=== PATIENT | male | born 1970 | race Caucasian/White ===

== ENCOUNTER 2025-02-25 12:41 | Outpatient (CLI) | payer BC | END 2025-02-25 12:42 | disposition home or self-care (01) | LOC: CSHWCC 12:41 | PROVIDERS: ATTEND Nurse Practitioner Family | DX: E11.621 Type 2 diabetes mellitus with foot ulcer (principal); L97.421 Non-pressure chronic ulcer of left heel and midfoot limited to breakdown of skin; S98.912D Complete traumatic amputation of left foot, level unspecified, subsequent encounter; E11.40 Type 2 diabetes mellitus with diabetic neuropathy, unspecified; E11.65 Type 2 diabetes mellitus with hyperglycemia | CPT/HCPCS: 11042 ==

== ENCOUNTER 2025-03-05 20:33 | Inpatient (IN) | payer BC, OTHER, SELFPAY ==
[~2025-03-05 20:33] MED LIST: Iopamidol 300 61% 100 ML VIAL FS ONE
[2025-03-05] MEDS ORDERED: Ketorolac Tromethamine 30 MG (1 mL) VIAL ONE (21:18)
[2025-03-05] MEDS ORDERED: Gabapentin 300 MG CAP ONE (21:22)
[2025-03-05 21:36] LABS: #Basophils 0.04 10x3/uL (0.0-0.2); #Eosinophils 0.06 10x3/uL (0.0-0.5); #Monocytes 0.65 10x3/uL (0.0-1.1); #Neutrophils 7.12 10x3/uL (1.5-8.4); %Basophils 0.4 % (0.0-2.0); %Eosinophils 0.6 % (0.0-6.0); %Lymphocytes 16.1 % (18.0-47.0); %Monocytes 6.8 % (0.0-10.0); %Neutrophils 74.8 % (40.0-75.0); Hematocrit 36.1 % (38.8-50.0); Hemoglobin 12.6 g/dL (13.5-17.5); INR-International Normal Ratio 0.9; Mean Corpuscular Hemoglobin 30.5 pg (27.0-33.0); Mean Corpuscular Volume 87.4 fL (81.2-95.1); PTT 26.5 sec (22.0-33.0); Platelet Count 328 10x3/uL (150-450); Prothrombin Time 10.3 sec (9.5-12.1); Red Blood Cell (RBC) Count 4.13 10x6/uL (4.32-5.72); White Blood Cell (WBC) Count 9.52 10x3/uL (3.5-10.5)
[2025-03-05 21:39] LABS: ALT (SGPT) Less than 7 U/L (Less than 45); AST (SGOT) 7 U/L (11-34); Albumin 2.7 g/dL (3.1-4.5); Alkaline Phosphatase 67 U/L (40-110); Anion Gap 16 mmol/L (10-20); BUN (Urea Nitrogen) 20 mg/dL (8.4-25.7); Bilirubin, Total 0.3 mg/dL (0.3-1.2); Calc. Creatinine Clearance 0 mL/min (70-130); Calcium 8.2 mg/dL (7.8-10.44); Carbon Dioxide 19 mmol/L (22-29); Chloride 107 mmol/L (98-107); Globulin 4.7 g/dL (2.4-3.5); Potassium 3.8 mmol/L (3.5-5.1); Sodium 138 mmol/L (136-145)
[2025-03-05 21:41] LABS: Glucose 503 mg/dL (70-105)
[2025-03-05 21:58] LABS: Glucose, Urine (Dipstick) >=1000 mg/dL (Negative); Leukocyte Negative (Negative); Protein, Urine (Dipstick) 500 mg/dl (Neg-Trace); Specific Gravity, Urine 1.015 (1.005-1.030)
[2025-03-05 22:06] LABS: Actual Bicarbonate (HCO3v) 18.3 mEq/L (22-28); Analyzer IN Cardio CS ER; Base Excess -5.5 mEq/L (-2 - +2); Calcium, Ionized (venous) 1.09 mmol/L (1.16-1.32); Chloride (VBG) 105 mmol/L (98-106); Hematocrit-VBG 37 % (42.0-52.0); Hemoglobin (Hb) 12.5 g/dL (13.1-17.2); Potassium (VBG) 3.68 mmol/L (3.70-5.30); Puncture Site Other Site; RapidComm Collect By Lab; Sodium 137 mmol/L (133-146)
[2025-03-05 22:10] LABS: CAUTI Indications for Culture Fever or rigors; RBC/HPF 0-3 HPF (0-3); WBC/HPF 0-3 HPF (0-3)
[2025-03-05 22:12] LABS: Bacteria/HPF 1+ HPF (None Seen); Mucous/LPF Rare LPF (<2+)
[2025-03-05 22:14] LABS: Urine Culture Reflex No No
[2025-03-05] MEDS ORDERED: Ondansetron PF 4 MG/2 ML Vial IVP PRN (23:52)
[2025-03-06] MEDS ORDERED: Glucagon 1 MG/ML KIT IM PRN (00:39)
[2025-03-06] MEDS ORDERED: Dextrose 50% Abboject 50 ML SYRINGE SLOW IVP PRN (00:39)
[2025-03-06] MEDS: Vancomycin 2.25 GM in Sodium Chloride 0.9% 500 ML IVPB SCH (01:06)
[2025-03-06 02:26] VITALS: BMI 29.5
[2025-03-06 03:16] LABS: #Basophils 0.05 10x3/uL (0.0-0.2); #Eosinophils 0.10 10x3/uL (0.0-0.5); #Monocytes 0.76 10x3/uL (0.0-1.1); #Neutrophils 6.06 10x3/uL (1.5-8.4); %Basophils 0.6 % (0.0-2.0); %Eosinophils 1.1 % (0.0-6.0); %Lymphocytes 20.6 % (18.0-47.0); %Monocytes 8.6 % (0.0-10.0); %Neutrophils 68.9 % (40.0-75.0); Hematocrit 33.0 % (38.8-50.0); Hemoglobin 11.3 g/dL (13.5-17.5); Mean Corpuscular Hemoglobin 30.1 pg (27.0-33.0); Mean Corpuscular Volume 88.0 fL (81.2-95.1); Platelet Count 258 10x3/uL (150-450); Red Blood Cell (RBC) Count 3.75 10x6/uL (4.32-5.72); White Blood Cell (WBC) Count 8.80 10x3/uL (3.5-10.5)
[2025-03-06 03:39] LABS: Anion Gap 10 mmol/L (10-20); BUN (Urea Nitrogen) 15 mg/dL (8.4-25.7); Calc. Creatinine Clearance 94 mL/min (70-130); Calcium 7.7 mg/dL (7.8-10.44); Carbon Dioxide 21 mmol/L (22-29); Chloride 111 mmol/L (98-107); Glucose 327 mg/dL (70-105); Potassium 3.4 mmol/L (3.5-5.1); Sodium 139 mmol/L (136-145); Vancomycin, Random 20.6 ug/mL (See Comment)
[2025-03-06] MEDS ORDERED: Acetaminophen 325 MG TAB ONE (08:48)
[2025-03-06] MEDS ORDERED: Losartan 25 MG TAB ONE ×2 (09:45→10:01)
[2025-03-06] MEDS: Losartan 25 MG TAB PO SCH (10:00)
[2025-03-06] MEDS ORDERED: VANCOMYCIN 1.25 GM/250 ML BAG 1.25 GM in Premix 1 BAG IVPB SCH (10:00)
[2025-03-06] MEDS: Lantus 1000 UNITS/10 ML VIAL SC SCH (10:07)
[2025-03-06] MEDS: Gabapentin 300 MG CAP PO SCH ×2 (11:08→15:08)
[2025-03-06] MEDS: Vancomycin 1 GM in Sodium Chloride 0.9% 250 ML 250 ML IVPB SCH ×3 (12:42→21:58)
[2025-03-06 13:44] LABS: Osmolality, Serum 313 mOsm/kg (275-295)
[2025-03-06 19:09] LABS: Magnesium 1.5 mg/dL (1.6-2.6)
[2025-03-07 04:36] LABS: #Basophils 0.04 10x3/uL (0.0-0.2); #Eosinophils 0.15 10x3/uL (0.0-0.5); #Monocytes 0.65 10x3/uL (0.0-1.1); #Neutrophils 3.51 10x3/uL (1.5-8.4); %Basophils 0.7 % (0.0-2.0); %Eosinophils 2.5 % (0.0-6.0); %Lymphocytes 28.1 % (18.0-47.0); %Monocytes 10.7 % (0.0-10.0); %Neutrophils 57.8 % (40.0-75.0); Hematocrit 33.2 % (38.8-50.0); Hemoglobin 11.5 g/dL (13.5-17.5); Mean Corpuscular Hemoglobin 30.1 pg (27.0-33.0); Mean Corpuscular Volume 86.9 fL (81.2-95.1); Platelet Count 245 10x3/uL (150-450); Red Blood Cell (RBC) Count 3.82 10x6/uL (4.32-5.72); White Blood Cell (WBC) Count 6.06 10x3/uL (3.5-10.5)
[2025-03-07 04:50] LABS: Anion Gap 10 mmol/L (10-20); BUN (Urea Nitrogen) 11 mg/dL (8.4-25.7); Calc. Creatinine Clearance 133 mL/min (70-130); Calcium 7.9 mg/dL (7.8-10.44); Carbon Dioxide 24 mmol/L (22-29); Chloride 109 mmol/L (98-107); Glucose 99 mg/dL (70-105); Potassium 3.5 mmol/L (3.5-5.1); Sodium 139 mmol/L (136-145)
[2025-03-07 06:22] LABS: Magnesium 1.5 mg/dL (1.6-2.6)
[2025-03-07] MEDS: Lantus 1000 UNITS/10 ML VIAL SC SCH (08:45)
[2025-03-07] MEDS ORDERED: Magnesium 2 GM/50 ML(in water) 2 GM in Premix 1 BAG IVPB SCH (10:00)
[2025-03-07] MEDS ORDERED: Vancomycin 1.5 GRAM/300 ML BAG 1.5 GM in Premix 1 BAG IVPB SCH (10:00)
[2025-03-07] MEDS: VANCOMYCIN 1.75 GM/350 ML BAG 1.75 GM in Premix 1 BAG IVPB SCH (13:26)
[2025-03-07] MEDS: Magnesium 2 GM/50 ML(in water) 2 GM in Premix 1 BAG IVPB SCH ×2 (13:27→15:18)
[2025-03-07 14:31] LABS: Potassium 3.8 mmol/L (3.5-5.1)
[2025-03-07] MEDS: Acetaminophen 325 MG TAB PO PRN (20:35)
[2025-03-07] MEDS: Vancomycin 1.5 GRAM/300 ML BAG 1.5 GM in Premix 1 BAG IVPB SCH (22:00)
[2025-03-08 04:12] LABS: #Basophils 0.04 10x3/uL (0.0-0.2); #Eosinophils 0.19 10x3/uL (0.0-0.5); #Monocytes 0.68 10x3/uL (0.0-1.1); #Neutrophils 3.98 10x3/uL (1.5-8.4); %Basophils 0.6 % (0.0-2.0); %Eosinophils 2.9 % (0.0-6.0); %Lymphocytes 24.5 % (18.0-47.0); %Monocytes 10.5 % (0.0-10.0); %Neutrophils 61.2 % (40.0-75.0); Hematocrit 34.6 % (38.8-50.0); Hemoglobin 11.6 g/dL (13.5-17.5); Mean Corpuscular Hemoglobin 28.7 pg (27.0-33.0); Mean Corpuscular Volume 85.6 fL (81.2-95.1); Platelet Count 249 10x3/uL (150-450); Red Blood Cell (RBC) Count 4.04 10x6/uL (4.32-5.72); White Blood Cell (WBC) Count 6.50 10x3/uL (3.5-10.5)
[2025-03-08 04:27] LABS: Vancomycin, Random 22.7 ug/mL (See Comment)
[2025-03-08 04:31] LABS: Anion Gap 11 mmol/L (10-20); BUN (Urea Nitrogen) 14 mg/dL (8.4-25.7); Calc. Creatinine Clearance 130 mL/min (70-130); Calcium 7.8 mg/dL (7.8-10.44); Carbon Dioxide 23 mmol/L (22-29); Chloride 106 mmol/L (98-107); Glucose 270 mg/dL (70-105); Magnesium 1.9 mg/dL (1.6-2.6); Potassium 3.7 mmol/L (3.5-5.1); Sodium 136 mmol/L (136-145)
[2025-03-08] MEDS ORDERED: PROPOFOL 20 ML ONE (07:33)
[2025-03-08] MEDS ORDERED: Ondansetron PF 4 MG/2 ML Vial ONE (07:33)
[2025-03-08] MEDS ORDERED: Ketorolac Tromethamine 30 MG (1 mL) VIAL ONE (07:34)
[2025-03-08] MEDS ORDERED: PHENYLEPHRINE-NS 100 MCG/ML 10 ML SYRINGE ONE (08:19)
[2025-03-08] MEDS: Magnesium 2 GM/50 ML(in water) 2 GM in Premix 1 BAG IVPB SCH (11:00)
[2025-03-08] MEDS: HYDROcodone/Acetaminophen 5/325 mg Tablet PO PRN (20:39)
[2025-03-09] MEDS: HYDROcodone/Acetaminophen 5/325 mg Tablet PO PRN (01:43)
[2025-03-09 04:05] LABS: #Basophils 0.04 10x3/uL (0.0-0.2); #Eosinophils 0.10 10x3/uL (0.0-0.5); #Monocytes 0.54 10x3/uL (0.0-1.1); #Neutrophils 6.28 10x3/uL (1.5-8.4); %Basophils 0.5 % (0.0-2.0); %Eosinophils 1.2 % (0.0-6.0); %Lymphocytes 17.6 % (18.0-47.0); %Monocytes 6.4 % (0.0-10.0); %Neutrophils 73.8 % (40.0-75.0); Hematocrit 33.4 % (38.8-50.0); Hemoglobin 11.6 g/dL (13.5-17.5); Mean Corpuscular Hemoglobin 29.7 pg (27.0-33.0); Mean Corpuscular Volume 85.6 fL (81.2-95.1); Platelet Count 308 10x3/uL (150-450); Red Blood Cell (RBC) Count 3.90 10x6/uL (4.32-5.72); White Blood Cell (WBC) Count 8.49 10x3/uL (3.5-10.5)
[2025-03-09 04:21] LABS: Anion Gap 11 mmol/L (10-20); BUN (Urea Nitrogen) 18 mg/dL (8.4-25.7); Calc. Creatinine Clearance 153 mL/min (70-130); Calcium 8.2 mg/dL (7.8-10.44); Carbon Dioxide 21 mmol/L (22-29); Chloride 106 mmol/L (98-107); Glucose 244 mg/dL (70-105); Magnesium 1.8 mg/dL (1.6-2.6); Potassium 3.6 mmol/L (3.5-5.1); Sodium 134 mmol/L (136-145)
[2025-03-09] MEDS: Magnesium 2 GM/50 ML(in water) 2 GM in Premix 1 BAG IVPB SCH (09:54)
[2025-03-09] MEDS: VANCOMYCIN 1.75 GM/350 ML BAG 1.75 GM in Premix 1 BAG IVPB SCH (09:58)
[2025-03-09 12:28] VITALS: BMI 29.5
[2025-03-10 05:36] LABS: #Basophils 0.06 10x3/uL (0.0-0.2); #Eosinophils 0.20 10x3/uL (0.0-0.5); #Monocytes 0.49 10x3/uL (0.0-1.1); #Neutrophils 3.51 10x3/uL (1.5-8.4); %Basophils 0.9 % (0.0-2.0); %Eosinophils 3.0 % (0.0-6.0); %Lymphocytes 35.1 % (18.0-47.0); %Monocytes 7.4 % (0.0-10.0); %Neutrophils 53.3 % (40.0-75.0); Hematocrit 33.8 % (38.8-50.0); Hemoglobin 11.7 g/dL (13.5-17.5); Mean Corpuscular Hemoglobin 29.9 pg (27.0-33.0); Mean Corpuscular Volume 86.4 fL (81.2-95.1); Platelet Count 303 10x3/uL (150-450); Red Blood Cell (RBC) Count 3.91 10x6/uL (4.32-5.72); White Blood Cell (WBC) Count 6.59 10x3/uL (3.5-10.5)
[2025-03-10 05:48] LABS: Vancomycin, Random 25.1 ug/mL (See Comment)
[2025-03-10 05:51] LABS: Anion Gap 10 mmol/L (10-20); BUN (Urea Nitrogen) 17 mg/dL (8.4-25.7); Calc. Creatinine Clearance 145 mL/min (70-130); Calcium 8.1 mg/dL (7.8-10.44); Carbon Dioxide 24 mmol/L (22-29); Chloride 108 mmol/L (98-107); Glucose 184 mg/dL (70-105); Magnesium 1.7 mg/dL (1.6-2.6); Potassium 3.9 mmol/L (3.5-5.1); Sodium 138 mmol/L (136-145)
[2025-03-10] MEDS: Vancomycin 1.5 GRAM/300 ML BAG 1.5 GM in Premix 1 BAG IVPB SCH (11:45)
[2025-03-10] MEDS: Magnesium 2 GM/50 ML(in water) 2 GM in Premix 1 BAG IVPB SCH (13:33)
[2025-03-10] MEDS: Rosuvastatin 20 MG TAB PO SCH (20:23)
[2025-03-11 06:09] LABS: #Basophils 0.04 10x3/uL (0.0-0.2); #Eosinophils 0.19 10x3/uL (0.0-0.5); #Monocytes 0.51 10x3/uL (0.0-1.1); #Neutrophils 3.00 10x3/uL (1.5-8.4); %Basophils 0.7 % (0.0-2.0); %Eosinophils 3.1 % (0.0-6.0); %Lymphocytes 38.0 % (18.0-47.0); %Monocytes 8.4 % (0.0-10.0); %Neutrophils 49.3 % (40.0-75.0); Hematocrit 36.3 % (38.8-50.0); Hemoglobin 12.1 g/dL (13.5-17.5); Mean Corpuscular Hemoglobin 28.5 pg (27.0-33.0); Mean Corpuscular Volume 85.4 fL (81.2-95.1); Platelet Count 310 10x3/uL (150-450); Red Blood Cell (RBC) Count 4.25 10x6/uL (4.32-5.72); White Blood Cell (WBC) Count 6.08 10x3/uL (3.5-10.5)
[2025-03-11 06:25] LABS: Anion Gap 13 mmol/L (10-20); BUN (Urea Nitrogen) 14 mg/dL (8.4-25.7); Calc. Creatinine Clearance 145 mL/min (70-130); Calcium 8.4 mg/dL (7.8-10.44); Carbon Dioxide 23 mmol/L (22-29); Chloride 109 mmol/L (98-107); Glucose 123 mg/dL (70-105); Magnesium 1.8 mg/dL (1.6-2.6); Potassium 3.8 mmol/L (3.5-5.1); Sodium 141 mmol/L (136-145)
[2025-03-11] MEDS: Aspirin 81 mg Enteric Coated Tablet PO SCH (08:54)
[2025-03-11] MEDS: Magnesium 2 GM/50 ML(in water) 2 GM in Premix 1 BAG IVPB SCH (11:22)
[2025-03-11] MEDS: cefTRIAXone\\ROCEPHIN 2 GM in Sodium Chloride 0.9% 100 ML IVPB SCH (23:29)
[2025-03-12 04:40] LABS: Magnesium 1.9 mg/dL (1.6-2.6)
[2025-03-12] MEDS: Magnesium 2 GM/50 ML(in water) 2 GM in Premix 1 BAG IVPB SCH (09:10)
[2025-03-12] MEDS: Pantoprazole 40 MG DR.TAB PO SCH (11:43)
[2025-03-12 16:59] VITALS: BP 159/92; TEMP 98.4
== END 2025-03-12 18:38 | disposition home or self-care (01) | DRG 854 ==
LOC: CSHERS 20:33 → CSHERHOLD 23:02 → CSHTELE 03-06 10:45
PROVIDERS: ADMIT Internal Medicine; ATTEND Hospitalist
PROC: 3E03329 Introduction of Other Anti-infective into Peripheral Vein, Percutaneous Approach (ICD-10-PCS; 2025-03-05)
PROC: 0QBM0ZZ Excision of Left Tarsal, Open Approach (ICD-10-PCS; 2025-03-08)
PROC: 02HV33Z Insertion of Infusion Device into Superior Vena Cava, Percutaneous Approach (ICD-10-PCS; principal; 2025-03-09)
PROC: B5181ZA Fluoroscopy of Superior Vena Cava using Low Osmolar Contrast, Guidance (ICD-10-PCS; 2025-03-09)
DX: A41.9 Sepsis, unspecified organism (principal); E87.20 Acidosis, unspecified; M86.9 Osteomyelitis, unspecified; L97.529 Non-pressure chronic ulcer of other part of left foot with unspecified severity; K21.9 Gastro-esophageal reflux disease without esophagitis; I10 Essential (primary) hypertension; Z98.890 Other specified postprocedural states; F17.220 Nicotine dependence, chewing tobacco, uncomplicated; Z79.899 Other long term (current) drug therapy; Z79.4 Long term (current) use of insulin; E87.6 Hypokalemia; E83.42 Hypomagnesemia; Z79.82 Long term (current) use of aspirin; E11.621 Type 2 diabetes mellitus with foot ulcer; E11.69 Type 2 diabetes mellitus with other specified complication; E11.65 Type 2 diabetes mellitus with hyperglycemia; E11.40 Type 2 diabetes mellitus with diabetic neuropathy, unspecified
CPT/HCPCS: 36415; 36416; 36572; 80048; 80053; 80202; 81001; 82010; 82805; 83036; 83605; 83735; 83930; 84100; 85025; 85610; 85730; 86140; 87040; 87070; 87076; 87081; 87086; 87102; 87205; 93926; 94760; 96365; 96366; 96367; 96375; 96376; 97139; C1751; J0692; J0696; J1100; J1815; J1885; J2270; J2405; J2543; J2704; J3010; J3373; J3375; J3475; J7030; J7050; J7120; Q9967

== ENCOUNTER 2025-03-18 10:51 | Outpatient (CLI) | payer OTHER | END 2025-03-18 10:52 | disposition home or self-care (01) | LOC: CSHWCC 10:51 | PROVIDERS: ATTEND Nurse Practitioner Family | DX: S98.912D Complete traumatic amputation of left foot, level unspecified, subsequent encounter (principal); E11.621 Type 2 diabetes mellitus with foot ulcer; L97.421 Non-pressure chronic ulcer of left heel and midfoot limited to breakdown of skin; E11.65 Type 2 diabetes mellitus with hyperglycemia | CPT/HCPCS: 11042; 99213; G0463 ==

== ENCOUNTER 2025-03-26 13:56 | Outpatient (CLI) | payer OTHER | END 2025-03-26 13:57 | disposition home or self-care (01) | LOC: CSHRAD 13:56 | PROVIDERS: ATTEND Nurse Practitioner Family | DX: L97.421 Non-pressure chronic ulcer of left heel and midfoot limited to breakdown of skin (principal) | CPT/HCPCS: 71046 ==

== ENCOUNTER 2025-04-01 11:12 | Outpatient (CLI) | payer OTHER | END 2025-04-01 11:13 | disposition home or self-care (01) | LOC: CSHWCC 11:12 | PROVIDERS: ATTEND Nurse Practitioner Family | DX: L89.503 Pressure ulcer of unspecified ankle, stage 3 (principal); S98.912D Complete traumatic amputation of left foot, level unspecified, subsequent encounter; E11.621 Type 2 diabetes mellitus with foot ulcer; L97.421 Non-pressure chronic ulcer of left heel and midfoot limited to breakdown of skin; E11.65 Type 2 diabetes mellitus with hyperglycemia; M86.172 Other acute osteomyelitis, left ankle and foot | CPT/HCPCS: 11042 ==

== ENCOUNTER 2025-04-14 21:25 | Inpatient (IN) | payer OTHER ==
[2025-04-14] MEDS ORDERED: Calcium Carbonate 500 MG ChewTAB PO PRN (22:47)
[2025-04-14] MEDS ORDERED: Guaifenesin DM 100-10/5 ML UDCUP PO PRN (22:47)
[2025-04-14] MEDS ORDERED: Dextrose 50% Abboject 50 ML SYRINGE SLOW IVP PRN (22:47)
[2025-04-14] MEDS ORDERED: Senokot S 8.6-50 MG TAB PO PRN (22:47)
[2025-04-14] MEDS ORDERED: Glucagon 1 MG/ML KIT IM PRN (22:47)
[2025-04-14] MEDS ORDERED: Melatonin 3 MG TAB PO PRN (22:47)
[2025-04-14] MEDS ORDERED: Chlorhexidine Gluconate 15 ML UDCUP SSP PRN (22:59)
[2025-04-14 23:15] VITALS: BMI 28.0
[2025-04-14] MEDS: Magnesium 2 GM/50 ML(in water) 2 GM in Premix 1 BAG IVPB SCH (23:32)
[2025-04-14 23:37] LABS: Anion Gap 15 mmol/L (10-20); BUN (Urea Nitrogen) 17 mg/dL (8.4-25.7); Calc. Creatinine Clearance 109 mL/min (70-130); Calcium 8.0 mg/dL (7.8-10.44); Carbon Dioxide 20 mmol/L (22-29); Chloride 107 mmol/L (98-107); Glucose 362 mg/dL (70-105); Potassium 3.6 mmol/L (3.5-5.1); Sodium 138 mmol/L (136-145)
[2025-04-14] MEDS: Acetaminophen/Codeine 30-300mg Tablet PO PRN (23:53)
[2025-04-14] MEDS: Potassium Phosphate 30 MMOL in Sodium Chloride 0.9% 250 ML 250 ML IVPB SCH (23:56)
[2025-04-15 01:39] LABS: Influenza A by NAA Not Detected (NotDetected); Influenza B by NAA Not Detected (NotDetected); RSV by NAA Not Detected (NotDetected); SARS-CoV-2 NAA Rapid Test Not Detected (NotDetected)
[2025-04-15] MEDS: Acetaminophen 325 MG TAB PO PRN (02:14)
[2025-04-15 04:36] LABS: Vancomycin, Random 2.2 ug/mL (See Comment)
[2025-04-15 04:37] LABS: Anion Gap 10 mmol/L (10-20); BUN (Urea Nitrogen) 18 mg/dL (8.4-25.7); Calc. Creatinine Clearance 108 mL/min (70-130); Calcium 7.8 mg/dL (7.8-10.44); Carbon Dioxide 22 mmol/L (22-29); Chloride 108 mmol/L (98-107); Glucose 203 mg/dL (70-105); Magnesium 1.7 mg/dL (1.6-2.6); Potassium 3.4 mmol/L (3.5-5.1); Sodium 137 mmol/L (136-145)
[2025-04-15 05:31] LABS: #Basophils 0.03 10x3/uL (0.0-0.2); #Eosinophils Less than 0.03 10x3/uL (0.0-0.5); #Monocytes 0.65 10x3/uL (0.0-1.1); #Neutrophils 9.45 10x3/uL (1.5-8.4); %Basophils 0.3 % (0.0-2.0); %Eosinophils 0.1 % (0.0-6.0); %Lymphocytes 9.6 % (18.0-47.0); %Monocytes 5.8 % (0.0-10.0); %Neutrophils 83.8 % (40.0-75.0); Hematocrit 32.7 % (38.8-50.0); Hemoglobin 11.3 g/dL (13.5-17.5); Mean Corpuscular Hemoglobin 28.8 pg (27.0-33.0); Mean Corpuscular Volume 83.2 fL (81.2-95.1); Platelet Count 247 10x3/uL (150-450); Red Blood Cell (RBC) Count 3.93 10x6/uL (4.32-5.72); White Blood Cell (WBC) Count 11.26 10x3/uL (3.5-10.5)
[2025-04-15] MEDS ORDERED: Losartan 50 MG TAB PO SCH (09:00)
[2025-04-15] MEDS: Gabapentin 300 MG CAP PO SCH (09:16)
[2025-04-15] MEDS: Pantoprazole 40 MG DR.TAB PO SCH (09:17)
[2025-04-15] MEDS: Aspirin 81 mg Enteric Coated Tablet PO SCH (09:18)
[2025-04-15] MEDS: glipiZIDE XL 5 mg ER.TAB PO SCH (09:18)
[2025-04-15] MEDS: PHOS-NAK 1 PKT PACK PO SCH (09:19)
[2025-04-15] MEDS: Magnesium Oxide 400 MG TAB PO SCH (09:19)
[2025-04-15] MEDS: Enoxaparin 40 MG (0.4 mL) SYRINGE SC SCH (09:20)
[2025-04-15] MEDS: Lantus 1000 UNITS/10 ML VIAL SC SCH (09:21)
[2025-04-15] MEDS: Vancomycin 1.5 GRAM/300 ML BAG 1.5 GM in Premix 1 BAG IVPB SCH ×2 (09:24→17:15)
[2025-04-15] MEDS: HYDROcodone/Acetaminophen 10/325 mg Tablet PO PRN (11:45)
[2025-04-15] MEDS ORDERED: Iopamidol 300 61% 100 ML VIAL FS ONE (14:20)
[2025-04-15 15:33] VITALS: BMI 28.0
[2025-04-15] MEDS: Rosuvastatin 20 MG TAB PO SCH (20:31)
[2025-04-16 05:05] LABS: Vancomycin, Random 12.9 ug/mL (See Comment)
[2025-04-16] MEDS: Ondansetron PF 4 MG/2 ML Vial IVP PRN (06:43)
[2025-04-16] MEDS: Gabapentin 400 MG CAP PO SCH (08:22)
[2025-04-16] MEDS: Metoclopramide HCl 10 MG (2 mL) VIAL IVP PRN (09:48)
[2025-04-16 09:53] LABS: #Basophils Less than 0.03 10x3/uL (0.0-0.2); #Eosinophils 0.12 10x3/uL (0.0-0.5); #Monocytes 0.63 10x3/uL (0.0-1.1); #Neutrophils 5.05 10x3/uL (1.5-8.4); %Basophils 0.3 % (0.0-2.0); %Eosinophils 1.7 % (0.0-6.0); %Lymphocytes 15.0 % (18.0-47.0); %Monocytes 9.2 % (0.0-10.0); %Neutrophils 73.4 % (40.0-75.0); Hematocrit 33.8 % (38.8-50.0); Hemoglobin 11.0 g/dL (13.5-17.5); Mean Corpuscular Hemoglobin 28.1 pg (27.0-33.0); Mean Corpuscular Volume 86.2 fL (81.2-95.1); Platelet Count 243 10x3/uL (150-450); Red Blood Cell (RBC) Count 3.92 10x6/uL (4.32-5.72); White Blood Cell (WBC) Count 6.88 10x3/uL (3.5-10.5)
[2025-04-16 10:10] LABS: Anion Gap 10 mmol/L (10-20); BUN (Urea Nitrogen) 19 mg/dL (8.4-25.7); Calc. Creatinine Clearance 156 mL/min (70-130); Calcium 8.1 mg/dL (7.8-10.44); Carbon Dioxide 23 mmol/L (22-29); Chloride 106 mmol/L (98-107); Glucose 135 mg/dL (70-105); Potassium 3.5 mmol/L (3.5-5.1); Sodium 135 mmol/L (136-145)
[2025-04-16] MEDS: VANCOMYCIN 1.75 GM/350 ML BAG 1.75 GM in Premix 1 BAG IVPB SCH (18:30)
[2025-04-16] MEDS: Nystatin Powder 15 GM BOT TOP PRN (22:05)
[2025-04-17 04:33] LABS: #Basophils 0.03 10x3/uL (0.0-0.2); #Eosinophils 0.11 10x3/uL (0.0-0.5); #Monocytes 0.54 10x3/uL (0.0-1.1); #Neutrophils 6.35 10x3/uL (1.5-8.4); %Basophils 0.4 % (0.0-2.0); %Eosinophils 1.3 % (0.0-6.0); %Lymphocytes 15.0 % (18.0-47.0); %Monocytes 6.5 % (0.0-10.0); %Neutrophils 76.4 % (40.0-75.0); Hematocrit 31.3 % (38.8-50.0); Hemoglobin 10.5 g/dL (13.5-17.5); Mean Corpuscular Hemoglobin 28.1 pg (27.0-33.0); Mean Corpuscular Volume 83.7 fL (81.2-95.1); Platelet Count 259 10x3/uL (150-450); Red Blood Cell (RBC) Count 3.74 10x6/uL (4.32-5.72); White Blood Cell (WBC) Count 8.31 10x3/uL (3.5-10.5)
[2025-04-17 04:48] LABS: Vancomycin, Random 17.8 ug/mL (See Comment)
[2025-04-17 04:49] LABS: Anion Gap 8 mmol/L (10-20); BUN (Urea Nitrogen) 12 mg/dL (8.4-25.7); Calc. Creatinine Clearance 152 mL/min (70-130); Calcium 7.9 mg/dL (7.8-10.44); Carbon Dioxide 26 mmol/L (22-29); Chloride 105 mmol/L (98-107); Glucose 94 mg/dL (70-105); Potassium 3.5 mmol/L (3.5-5.1); Sodium 135 mmol/L (136-145)
[2025-04-17] MEDS: Vancomycin 1.5 GRAM/300 ML BAG 1.5 GM in Premix 1 BAG IVPB SCH (18:42)
[2025-04-18 05:17] LABS: #Basophils Less than 0.03 10x3/uL (0.0-0.2); #Eosinophils 0.12 10x3/uL (0.0-0.5); #Monocytes 0.41 10x3/uL (0.0-1.1); #Neutrophils 3.07 10x3/uL (1.5-8.4); %Basophils 0.2 % (0.0-2.0); %Eosinophils 2.4 % (0.0-6.0); %Lymphocytes 26.9 % (18.0-47.0); %Monocytes 8.2 % (0.0-10.0); %Neutrophils 61.7 % (40.0-75.0); Hematocrit 30.9 % (38.8-50.0); Hemoglobin 10.3 g/dL (13.5-17.5); Mean Corpuscular Hemoglobin 28.3 pg (27.0-33.0); Mean Corpuscular Volume 84.9 fL (81.2-95.1); Platelet Count 268 10x3/uL (150-450); Red Blood Cell (RBC) Count 3.64 10x6/uL (4.32-5.72); White Blood Cell (WBC) Count 4.98 10x3/uL (3.5-10.5)
[2025-04-18 05:31] LABS: Anion Gap 8 mmol/L (10-20); BUN (Urea Nitrogen) 11 mg/dL (8.4-25.7); Calc. Creatinine Clearance 154 mL/min (70-130); Calcium 7.9 mg/dL (7.8-10.44); Carbon Dioxide 25 mmol/L (22-29); Chloride 108 mmol/L (98-107); Glucose 234 mg/dL (70-105); Potassium 3.8 mmol/L (3.5-5.1); Sodium 137 mmol/L (136-145)
[2025-04-18] MEDS: Losartan 25 MG TAB PO SCH (11:10)
[2025-04-18] MEDS: HYDROmorphone 0.5 MG/0.5 ML SYRINGE SLOW IVP SCH (20:45)
[2025-04-19 04:19] LABS: #Basophils 0.03 10x3/uL (0.0-0.2); #Eosinophils 0.16 10x3/uL (0.0-0.5); #Monocytes 0.46 10x3/uL (0.0-1.1); #Neutrophils 3.89 10x3/uL (1.5-8.4); %Basophils 0.5 % (0.0-2.0); %Eosinophils 2.6 % (0.0-6.0); %Lymphocytes 25.7 % (18.0-47.0); %Monocytes 7.5 % (0.0-10.0); %Neutrophils 63.2 % (40.0-75.0); Hematocrit 34.7 % (38.8-50.0); Hemoglobin 11.4 g/dL (13.5-17.5); Mean Corpuscular Hemoglobin 27.9 pg (27.0-33.0); Mean Corpuscular Volume 85.0 fL (81.2-95.1); Platelet Count 374 10x3/uL (150-450); Red Blood Cell (RBC) Count 4.08 10x6/uL (4.32-5.72); White Blood Cell (WBC) Count 6.15 10x3/uL (3.5-10.5)
[2025-04-19 04:32] LABS: Anion Gap 9 mmol/L (10-20); BUN (Urea Nitrogen) 13 mg/dL (8.4-25.7); Calc. Creatinine Clearance 134 mL/min (70-130); Calcium 8.3 mg/dL (7.8-10.44); Carbon Dioxide 25 mmol/L (22-29); Chloride 107 mmol/L (98-107); Glucose 183 mg/dL (70-105); Potassium 4.1 mmol/L (3.5-5.1); Sodium 137 mmol/L (136-145); Vancomycin, Random 15.8 ug/mL (See Comment)
[2025-04-19] MEDS: Losartan 25 MG TAB PO SCH (08:33)
[2025-04-19] MEDS: Vancomycin 1.5 GRAM/300 ML BAG 1.5 GM in Premix 1 BAG IVPB SCH (22:07)
[2025-04-21 16:03] VITALS: BP 141/79; TEMP 98
== END 2025-04-21 18:31 | disposition home or self-care (01) | DRG 872 ==
LOC: CSHTELE 22:20
PROVIDERS: ADMIT Student in an Organized Health Care Education/Training Program; ATTEND Family Medicine
DX: A41.9 Sepsis, unspecified organism (principal); E87.20 Acidosis, unspecified; M86.672 Other chronic osteomyelitis, left ankle and foot; M86.172 Other acute osteomyelitis, left ankle and foot; L97.429 Non-pressure chronic ulcer of left heel and midfoot with unspecified severity; B95.2 Enterococcus as the cause of diseases classified elsewhere; E11.621 Type 2 diabetes mellitus with foot ulcer; I10 Essential (primary) hypertension; E78.5 Hyperlipidemia, unspecified; K21.9 Gastro-esophageal reflux disease without esophagitis; E11.40 Type 2 diabetes mellitus with diabetic neuropathy, unspecified; E11.65 Type 2 diabetes mellitus with hyperglycemia; E86.0 Dehydration; E87.6 Hypokalemia; E83.42 Hypomagnesemia; E83.39 Other disorders of phosphorus metabolism; F17.200 Nicotine dependence, unspecified, uncomplicated; Z89.422 Acquired absence of other left toe(s); Z98.49 Cataract extraction status, unspecified eye; Z83.3 Family history of diabetes mellitus; Z79.4 Long term (current) use of insulin; Z89.421 Acquired absence of other right toe(s); Z79.899 Other long term (current) drug therapy; Z79.82 Long term (current) use of aspirin; E11.51 Type 2 diabetes mellitus with diabetic peripheral angiopathy without gangrene; R68.84 Jaw pain; F17.220 Nicotine dependence, chewing tobacco, uncomplicated; M54.2 Cervicalgia; Z88.5 Allergy status to narcotic agent; Z89.411 Acquired absence of right great toe; R65.20 Severe sepsis without septic shock; E88.09 Other disorders of plasma-protein metabolism, not elsewhere classified; R80.9 Proteinuria, unspecified; K08.89 Other specified disorders of teeth and supporting structures; E11.69 Type 2 diabetes mellitus with other specified complication; I70.202 Unspecified atherosclerosis of native arteries of extremities, left leg
CPT/HCPCS: 36415; 36416; 70492; 80048; 80202; 83036; 83605; 83735; 84100; 84145; 85025; 86140; 87070; 87077; 87081; 87186; 87205; 87637; 97139; J1171; J1642; J1650; J1815; J2543; J2765; J3373; J3375; J3475; J7050; J7120; Q9967

== ENCOUNTER 2025-04-24 11:08 | Outpatient (CLI) | payer OTHER | END 2025-04-24 11:09 | disposition home or self-care (01) | LOC: CSHWCC 11:08 | PROVIDERS: ATTEND Nurse Practitioner Family | DX: S98.912D Complete traumatic amputation of left foot, level unspecified, subsequent encounter (principal); E11.621 Type 2 diabetes mellitus with foot ulcer; L97.421 Non-pressure chronic ulcer of left heel and midfoot limited to breakdown of skin; E11.65 Type 2 diabetes mellitus with hyperglycemia; M86.172 Other acute osteomyelitis, left ankle and foot | CPT/HCPCS: 11042; 99213; G0463 ==

== ENCOUNTER 2025-05-01 10:47 | Outpatient (CLI) | payer OTHER | END 2025-05-01 10:48 | disposition home or self-care (01) | LOC: CSHWCC 10:47 | PROVIDERS: ATTEND Nurse Practitioner Family | DX: S98.912D Complete traumatic amputation of left foot, level unspecified, subsequent encounter (principal); E11.621 Type 2 diabetes mellitus with foot ulcer; L97.421 Non-pressure chronic ulcer of left heel and midfoot limited to breakdown of skin; E11.65 Type 2 diabetes mellitus with hyperglycemia; E11.69 Type 2 diabetes mellitus with other specified complication; M86.172 Other acute osteomyelitis, left ankle and foot | CPT/HCPCS: 99213; G0463 ==